=== PATIENT | female | born 1975 | race Caucasian/White ===

== ENCOUNTER → 2020-05-14 10:15 | Outpatient (BNVA) | payer MEDICAID, SELFPAY | PROVIDERS: Family Provider Nurse Practitioner Family; Referring Provider Nurse Practitioner Family; Visit Provider Specialist | DX: M65.331 Trigger finger, right middle finger (principal) | CPT/HCPCS: 73130 ==

== ENCOUNTER → 2020-05-28 10:16 | Outpatient (BNVA) | payer MEDICAID, SELFPAY | PROVIDERS: Family Provider Nurse Practitioner Family; Visit Provider Internal Medicine | DX: M65.331 Trigger finger, right middle finger (principal); Z20.828 Contact with and (suspected) exposure to other viral communicable diseases | CPT/HCPCS: 87635 ==

== ENCOUNTER 2020-05-30 08:58 | Day surgery (SDC) | payer MEDICAID, SELFPAY ==
[2020-05-29 13:11] VITALS: BMI 34.7
[2020-05-30 09:16] VITALS: BP 115/77; PULSE 67; RESP 18; TEMP 36.1; O2SAT 96
[2020-05-30] MEDS: CELEcoxib 200 mg Capsule 400 MG PO (09:19)
[2020-05-30] MEDS: sodium chloride 0.9% 1,000 ML 30 ML IV (09:25)
--- NOTE | 2020-05-30 09:49 | W.PM.OPSUD ---
Surgery/Procedure H&P Update DATE OF PROCEDURE: May 30, 2020 DATE H&P PERFORMED: 05/14/20 H&P UPDATE INFORMATION: I have reviewed H&P completed within last 30 days, I have examined patient prior to procedure and H&P is in [facility] EMR on date indicated PREOP DIAGNOSIS: Right long finger triggering PLANNED PROCEDURE: Operation Date: 05/30/20 10:50 Proposed Procedures p right Trigger Finger Release of middle finger 54746 M65.331(Right) - Grecia Irene MD Related Problem List Diagnoses (1) Trigger finger, right middle finger:
--- NOTE | 2020-05-30 09:51 | ANES.PREANE2 ---
Pre-Anesthetic Assessment Pre-Anesthetic Assessment: Height/Weight: Height 1.57 m Weight 86.183 kg Temp Pulse Resp BP Pulse Ox 97.0 F L 67 18 115/77 96 05/30/20 09:16 05/30/20 09:16 05/30/20 09:16 05/30/20 09:16 05/30/20 09:16 Preop Diagnosis: Right long finger triggering Proposed Procedure: Operation Date: 05/30/20 10:50 Proposed Procedures p right Trigger Finger Release of middle finger [id number] M65.331(Right) - Grecia Irene MD Familial anesthetic complications: None Was Beta Tha taken within 24 hours: N/A Last intake: Intake Last Liquid Date 05/29/20 Last Liquid Time 20:00 Last Solid Date 05/29/20 Last Solid Time 18:00 Social: Social History: Tobacco and No alcohol Exam: Pre-Anes Outpt Exam: alert, oriented x 3, clear to auscultation bilaterally and regular rate & rhythm Airway: Cervical ROM: WNL MP: 2 Dentition: Full Pulmonary: Pulmonary: None reported CV/HEM: CV/HEM: None reported Anesthetic Plan: ASA status: 2 Anesthesia: MAC and Regional (specify below) Risk of > 500 ml blood loss (7ml/kg in children): No Meds/Allergies Current Medications: Current Medications Generic Name Dose Route Start Last Admin Trade Name Freq PRN Reason Stop Dose Admin Sodium Chloride 1,000 mls @ 30 ml s/hr 05/30/20 09:15 05/30/20 09:25 Sodium Chloride 0.9% IV 05/31/20 09:14 30 mls/hr .Q24H CORRINA Administration PFSH Anesthesia PFSH: Social History Smoking and tobacco status: current every day smoker Alcohol intake: never Data Anesthesia Cardiac Studies: No Data to Display
[2020-05-30 11:00] VITALS: BP 131/72; PULSE 81; RESP 16; TEMP 36.5; O2SAT 94
[2020-05-30 11:11] VITALS: BP 181/82; PULSE 78; RESP 18; O2SAT 95
--- NOTE | 2020-05-30 11:15 | P.OP_ITS ---
Operative Report Date of procedure: May 30, 2020 Pre-op Diagnosis: Right long finger triggering Post-op diagnosis: same Procedure Done: Release right long trigger finger Specimens removed/disposition: None Pathology: none sent Surgeon: Grecia Irene [employer] Founder: None Anesthesia: MAC (With [place] block) Estimated blood loss (mL): 5 Tourniquet time (min): 30 (At 250 mmHg) IV fluids (mL): 500 Urine output (mL): 0 Complications: None Findings: Thickening of the A1 makayla and flexor tendons. There is some evidence of irritation to the tendons. Condition: stable Disposition: same day Brief History: This 44-year-old woman presented with complaints of triggering of the right long finger. She had pain in this area and difficulties with activities of daily living. After discussion in the office, she wished to proceed with trigger finger release. Procedure: Patient was brought to the operating theater. She was placed on the operating room table. A [place] block was administered without difficulty. Patient tolerated it well. [1 g of Ancef was administered]. A tourniquet was placed high on the arm and was elevated for the [place] block. This followed exsanguination of the arm. Tourniquet time was 30 minutes. Surgical pause was performed prior to commencement of the surgical procedure. At the time of the surgical pause we alvaro ntified the site and side of surgery. We also identified the patient's identity and appropriate administration of IV antibiotics. Following the surgical pause, an incision was made along the distal palmar crease beneath the long finger. Dissection continued through the skin to the subcutaneous tissues using a scalpel. Blunt dissection was then utilized to spread soft tissues and allow access to the A1 makayla. The A1 makayla was identified. It was then incised longitudinally and sharply using a scalpel. This was accomplished without difficulty and atraumatically. Once the A1 makayla was released, tendons were brought up out of the wound and evaluated. There were no gross masses on the tendons, but there was some fraying indicative of irritation. Tendons were returned to normal position. We then irrigated the wound and subsequently closed it with 3-0 nylon with an interrupted mattress type suture. Following closure of the wound, the wound was injected with 3 mL of bupivacaine into the subcutaneous tissues as a local anesthetic. Sterile dressing was then placed consisting of Telfa and Tegaderm, fluffed fluffs, sterile soft roll, and an John wrap. The patient was returned to recovery in satisfactory condition. [] will be discharged home to follow-up with me in the office. There were no complications and no specimens. Associated Problem List Diagnoses (1) Trigger finger, right middle finger:
--- NOTE | 2020-05-30 12:45 | ANE.PACU2 ---
Inpatient post-anesthesia follow up: Airway intact: Yes Vital signs: Temperature 97.7 F Pulse Rate 78 Respiratory Rate 18 Blood Pressure 181/82 Pulse Oximetry 95 Oxygen Delivery Me thod Room Air Oxygen Flow Rate Fraction of Inspir ed Oxygen Hydration adequate: Yes Nausea and vomiting: No Pain level: 1 Mental status: Baseline
== END 2020-05-30 11:34 | disposition home or self-care (01) ==
PROVIDERS: Visit Provider Specialist
PROC: (CPT 26055; principal; 2020-05-30 10:40)
DX: M65.331 Trigger finger, right middle finger (principal); F17.200 Nicotine dependence, unspecified, uncomplicated
CPT/HCPCS: 26055; 12345; J0131; J2250; J2704; J3490; J7030

== ENCOUNTER → 2021-09-21 16:26 | Outpatient (BNVA) | payer MEDICAID, SELFPAY | PROVIDERS: Visit Provider Nurse Practitioner Family | DX: Z11.52 Encounter for screening for COVID-19 (principal); Z20.822 Contact with and (suspected) exposure to COVID-19 | CPT/HCPCS: 87635 ==

== ENCOUNTER → 2023-12-30 14:39 | Outpatient (BNVA) | payer BC, SELFPAY | PROVIDERS: Visit Provider Nurse Practitioner Family | DX: S90.819A Abrasion, unspecified foot, initial encounter (principal); X58.XXXA Exposure to other specified factors, initial encounter | CPT/HCPCS: 73610 ==

== ENCOUNTER 2024-06-04 17:41 | Emergency (ER) | payer BC, MEDICAID, SELFPAY ==
[2024-06-04 17:47] VITALS: BP 121/53; PULSE 71; TEMP 36.8; O2SAT 97; BMI 35.3
--- NOTE | 2024-06-04 18:18 | XRR_ITS ---
PROCEDURE INFORMATION: Exam: XR Right Shoulder Exam date and time: 06/04/2024 6:28 PM Age: 48 years old Clinical indication: Injury or trauma; Fall; Blunt trauma (contusions or hematomas); Shoulder; Right; Additional info: Fall/pain TECHNIQUE: Imaging protocol: Radiologic exam of the right shoulder. Views: 2 or more views. COMPARISON: No relevant prior studies available. FINDINGS: Bones/joints: Normal mineralization and alignment. No evidence of acute fracture or dislocation. Mild degenerative changes of the right acromioclavicular joint. Soft tissues: The soft tissues are within normal limits. XR/XR shoulder RT min 2V* [id number] IMPRESSION: No evidence of acute fracture or dislocation.
--- NOTE | 2024-06-04 18:19 | ED_ITS ---
HPI - Extremity Problem General: Chief complaint: Extremity Injury, Upper Stated complaint: Fell Right shoulder and arm numb/pain Time Seen by Provider: 06/04/24 17:53 Source: patient Mode of arrival: ambulatory Limitations: no limitations History of Present Illness: Patient is a 48-year-old female who presents to the emergency department after a fall at approximately 1400 today, stating that she fell onto her right arm/shoulder. She is reporting pain to the diffuse right shoulder joint, stating that she has shocks of pain send down her entire right arm with any movement and believes she has nerve damage. This did occur while at work, she states she slipped on wet wood while walking outside. Unknown if Worker's Comp. at this time. She did take some ibuprofen earlier, states this did not really help. No other symptoms or injuries reported with the fall she did not hit her head or lose consciousness. MD Complaint: joint pain (Right shoulder) Onset (ago): hour(s) Pain Consistency: constant Location: right and upper extremity Radiation: distal Exacerbating factors: range of motion Associated symptoms: Reports no associated symptoms; Deny chest pain, fever(s) or rash Related Data Home Medications Medication Instructions Recorded Confirmed hydrocodone 5 mg-acetaminophen 325 1 tab PO Q8H PRN Pain 05/14/20 09/21/21 mg tablet ([place]) trazodone 150 mg tablet 150 mg PO DAILY 05/14/20 09/21/21 bupropion HCl 200 mg tablet,12 hr 200 mg PO DAILY 12/30/23 12/30/23 sustained-release (Wellbutrin SR) Allergies Allergy/AdvReac Type Severity Reaction Status Date / Time tramadol Allergy vomiting Verified 06/04/24 17:49 Review of Systems General: Reports: 10 or more systems reviewed and unremarkable except in HPI and below Const: Reports: other (Fall); Denies: fever(s) or chills Card: Denies: chest pain Resp: Denies: dyspnea or productive cough GI: Denies: abdominal pain, nausea, vomiting or diarrhea : Denies: flank pain Musc: Reports: joint pain (Right shoulder) and limited range of motion; Denies: neck pain, back pain, extremity pain, extremity swelling, joint swelling, joint redness, joint warmth or muscle weakness Skin/Breast: Denies: rash Neuro: Denies: headache(s), numbness in extremities or weakness in extremities PFSH ED PFSH: Social History Smoking and tobacco/nicotine status: current every day tobacco/nicotine user Alcohol intake: never Substance/Drug Use: never Physical Exam Const: COMMON NORMALS: no acute distress, patient oriented x3, no limitations, healthy appearing, alert and well nourished GENERAL APPEARANCE: anxious HENMT: COMMON NORMALS: normocephalic and atraumatic HEAD & SCALP: normocephalic and atraumatic Neck/C-Spine: COMMON NORMALS: full ROM, supple and no meningeal signs Resp: COMMON NORMALS: normal respiratory effort, No use of accessory muscles and clear to auscultation bilaterally AUSCULTATION: clear to auscultation bilaterally Cardio: COMMON NORMALS: regular rate and regular rhythm RATE: regular rate RHYTHM: regular rhythm Extremity: COMMON NORMALS: normal to inspection, full ROM, capillary refill normal, no joint enlargement and no clubbing, cyanosis or edema NARRATIVE EXTREMITY EXAM: Pain with range of motion of the right shoulder joint. Tenderness to palpation along the clavicle and posterior scapular spine, no palpable deformity or other signs of trauma. Also is endorsing some tenderness to palpation of the proximal humerus, again with no signs of trauma or deformity. Radial pulse is intact, good strength distally. Negative elbow examination. Neuro: COMMON NORMALS: patient oriented x3, moves all extremities, no focal motor deficits and no sensory deficits noted SENSORIUM/ORIENTATION: Yes alert MENINGEAL SIGNS: Yes no meningeal signs Skin: COMMON NORMALS: no rashes or lesions noted GENERAL SKIN EXAM: no rashes or lesions noted Course Vital Signs: Vital signs: Vital Signs Temperature 98.2 F 06/04/24 17:47 Pulse Rate 70 06/04/24 19:27 Blood Pressure 120/51 06/04/24 19:27 Pulse Oximetry 97 06/04/24 19:27 Oxygen Delivery Me thod Room Air 06/04/24 17:47 MDM - Extremity (Nontraumatic) Medical Decision Making Patient fell onto her right upper extremity earlier today. Physical examination overall unremarkable for any acute signs of trauma or deformity, she was diffusely tender to the right shoulder joint and had pain with range of motion. X-ray did not demonstrate any acute findings. We will treat conservatively with RICE therapy, and she does note some improvement after medications here in the emergency department. Reasons to return discussed. Lab Data Radiology Impressions Shoulder X-Ray 06/04/24 18:18 IMPRESSION: No evidence of acute fracture or dislocation. All radiology interpretation(s) finalized by discharge Discharge Plan Discharge Patient Disposition: Home Clinical Impression: Contusion of right shoulder Qualifiers: Encounter type: initial encounter Qualified Code(s): S40.011A - Contusion of right shoulder, initial encounter Condition: Stable Prescriptions: No Action trazodone 150 mg tablet 150 mg PO DAILY hydrocodone-acetaminophen [[place]] 5-325 mg tablet 1 tab PO Q8H PRN (Reason: Pain) bupropion HCl [Wellbutrin SR] 200 mg tablet sustained-release 12 hr 200 mg PO DAILY Discharge Orders: Discharge ED (Routine); Ordered 06/04/24 Ordered By: Sam Birmingham Referrals: Sybil Amador APN [Primary Care Provider] - Discharge Diet: Usual diet Discharge Activity: Increase activity as tolerated Patient Instructions: Contusion in Adults (ED) Activity Restrictions/Additional Instructions: Rest, ice, compression, and elevation. Tylenol ibuprofen. Follow-up with primary care as needed. Return with any new or worsening. Stand Alone Forms: Work/School Release Coding Level of Care Code ED [employer] Teacher for [employer]
[2024-06-04] MEDS: acetaminophen 500 mg Tablet 1000 MG PO (18:24)
[2024-06-04] MEDS: orphenadrine 30 mg/mL Inj 2 mL 60 MG IM (18:26)
[2024-06-04 19:27] VITALS: BP 120/51; PULSE 70; O2SAT 97
== END 2024-06-04 19:28 | disposition home or self-care (01) ==
PROVIDERS: Emergency Provider Physician Assistant; PCP Nurse Practitioner Family
DX: S40.011A Contusion of right shoulder, initial encounter (principal); Z72.0 Tobacco use; W19.XXXA Unspecified fall, initial encounter
CPT/HCPCS: 73030; 96372; 99284; J2360